=== PATIENT | female | born 1955 ===

== ENCOUNTER 2023-12-05 05:18 | Day surgery (SDC) | payer OTHER ==
[2023-12-05 08:16] LABS: HEMATOCRIT 39.3 % (36.0-45.00); HEMOGLOBIN 13.2 g/dL (12.0-15.00); MEAN CELL VOLUME 92.1 fL (80.00-100.00); MEAN CORPUSCULAR HEMOGLOBIN 30.9 pg (27.00-32.0); MEAN CORPUSCULAR HGB CONC 33.6 g/dl (32.0-36.0); PLATELET COUNT 237 K/uL (150-450); RED BLOOD COUNT 4.27 M/uL (4.00-6.00)
[2023-12-05 08:35] LABS: INR 1.01; PARTIAL THROMBOPLASTIN TIME 27.1 SECONDS (22.0-34.0)
[2023-12-05 09:30] LABS: CALCIUM 9.7 mg/dL (8.5-10.1); CREATININE SERUM 0.71 mg/dL (0.55-1.02); GFR 81.62; POTASSIUM 4.27 mEq/L (3.5-5.1)
[2023-12-05] MEDS ORDERED: BUPIVACAINE HCL 30 ML VIAL IJ ONE ×2 (13:00→14:00)
[2023-12-05] MEDS ORDERED: CEFAZOLIN SODIUM 1,000 MG VIAL IV ONE (13:00)
[2023-12-05] MEDS ORDERED: LIDOCAINE HCL 1%/EPINEPHRINE 20ML VIAL IJ ONE ×2 (13:00→14:00)
[2023-12-05] MEDS ORDERED: TRAM1TAB98 PO (13:32)
== END 2023-12-05 16:00 | disposition home or self-care (01) ==
LOC: CIR.AMB 05:18
PROVIDERS: ATTEND Surgery
DX: R15.9 Full incontinence of feces (principal)
CPT/HCPCS: 64581; C1778

== ENCOUNTER 2023-12-26 05:20 | Day surgery (SDC) | payer OTHER ==
[~2023-12-26 05:20] MED LIST: ATACAND HCT 161 EACH PO; TRAM1TAB98 PO
[2023-12-26] MEDS ORDERED: TRAM1TAB98 PO (08:07)
[2023-12-26] MEDS ORDERED: LIDOCAINE HCL 1%/EPINEPHRINE 20ML VIAL IJ ONE (08:15)
[2023-12-26] MEDS ORDERED: BUPIVACAINE HCL 30 ML VIAL IJ ONE (08:15)
[2023-12-26] MEDS ORDERED: CEFAZOLIN SODIUM 1,000 MG in 0.9 % SODIUM CHLORIDE 50 ML IV ONE (08:15)
== END 2023-12-26 11:15 | disposition home or self-care (01) ==
LOC: CIR.AMB 05:20
PROVIDERS: ATTEND Surgery
DX: R15.9 Full incontinence of feces (principal)
CPT/HCPCS: 64590; 95972; C1767